=== PATIENT | male | born 1955 | race Caucasian/White ===

== ENCOUNTER 2023-11-25 08:33 | Outpatient (CLI) | payer MEDICARE | END 2023-11-25 08:34 | disposition home or self-care (01) | LOC: CSHULT 08:33 | PROVIDERS: ATTEND Internal Medicine | DX: D69.6 Thrombocytopenia, unspecified (principal); E80.6 Other disorders of bilirubin metabolism; K76.9 Liver disease, unspecified; R16.1 Splenomegaly, not elsewhere classified | CPT/HCPCS: 76700 ==

== ENCOUNTER 2023-12-10 07:59 | Outpatient (CLI) | payer MEDICARE | END 2023-12-10 08:00 | disposition home or self-care (01) | LOC: CSHCT 07:59 | PROVIDERS: ATTEND Physician Assistant Medical | DX: K76.0 Fatty (change of) liver, not elsewhere classified (principal); R17 Unspecified jaundice | CPT/HCPCS: 74160; 82565 ==